=== PATIENT | female | born 2005 | race African-American/Black ===

== ENCOUNTER 2023-02-08 03:39 | Emergency (ER) | payer OTHER ==
[~2023-02-08] VITALS: Ht 165.1 cm; Wt 56.4 kg
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
[2023-02-08] MEDS ORDERED: IBUPROFEN 600 MG TABLET PO ONE (04:00)
[2023-02-08 04:10] VITALS: BP 119/90
== END 2023-02-08 04:10 | disposition home or self-care (01) ==
LOC: ER FS 03:44 → EDBD 03:44 → ER FS 04:10
DX: S01.512A Laceration without foreign body of oral cavity, initial encounter (principal); R51.9 Headache, unspecified; V47.5XXA Car driver injured in collision with fixed or stationary object in traffic accident, initial encounter
CPT/HCPCS: 99283